=== PATIENT | female | born 1995 ===

== ENCOUNTER 2017-04-29 15:20 | Inpatient (IN) | payer MEDICAID ==
[2017-04-29 15:56] VITALS: BMI 22.9
[2017-04-29] MEDS ORDERED: Oxytocin 30 units/LR 500ML 30 U/500 ML BAG IV SCH (16:00)
[2017-04-29] MEDS ORDERED: Lactated Ringer's 1,000 ML IV SCH (16:00)
[2017-04-29 18:56] VITALS: BP 110/69; RESP 16; TEMP 97.9
[2017-04-29 19:29] LABS: BASO % 0.4 % (0.0-2.0); EOS # 0.1 K/uL (0.0-0.7); EOS % 0.9 % (0.0-4.0); LYMPH # 1.6 K/uL (1.0-4.3); LYMPH % 16.5 % (20.0-40.0); MEAN CELL VOLUME 83.7 fl (81.0-99.0); MEAN CORPUSCULAR HEMOGLOBIN 27.8 pg (27.0-31.0); MEAN CORPUSCULAR HGB CONC 33.2 g/dL (33.0-37.0); MEAN PLATELET VOLUME 9.2 fl (7.2-11.7); MONO # 0.6 K/uL (0.0-0.8); MONO % 6.4 % (0.0-10.0); NEUT # 7.4 K/uL (1.8-7.0); NEUT % 75.8 % (50.0-75.0); RBC 4.33 Mil/uL (3.80-5.20); RED CELL DISTRIBUTION WIDTH 14.7 % (11.5-14.5); WHITE BLOOD COUNT 9.8 K/uL (4.8-10.8)
[2017-04-30] MEDS ORDERED: Fentanyl/Bupivacaine HCl 250 ML EPI ONE (04:53)
[2017-04-30] MEDS ORDERED: Bupivacaine HCl 0.25% PF (10 ml) Inj ONE (04:53)
[2017-04-30] MEDS: Lactated Ringer's 1,000 ML IV SCH ×2 (08:00→16:59)
[2017-04-30] MEDS ORDERED: Lidocaine 1% Inj (20ml) ONE (13:53)
[2017-04-30] MEDS ORDERED: Oxytocin 30 units/LR 500ML 30 U/500 ML BAG IV SCH (16:34)
[2017-04-30] MEDS ORDERED: Oxycodone/Acetaminophen 5/325 mg Tab PO PRN (16:34)
[2017-04-30] MEDS ORDERED: Benzocaine/Menthol SPRAY TOP PRN (16:34)
--- NOTE | 2017-04-30 16:37 | OBDS ---
DELIVERY PERSONNEL Nurse Veterinary X Ray Operator Certified: klever Delivery Doctor: Dr Ashok Orozco Nurse: klever Enrollment Advisor: MAYRA Harris Anesthesiologist: Dr Nash Applications Consultant: klever Resident: klever MATERNAL INFORMATION Delivery Anesthesia: Epidural Medications in Delivery: pitocin 30 u in RL 500cc Estimated Blood Loss (ml): 250cc Placenta Cultured: klever RN Comments: to alive baby boy; 9/9; uuneventful Provider Comments: Delivered live baby boy at 2:54 PM the baby was bulb suctioned on the perineum an d transferred to maternal chest. The cord was clamped and cut 3 vessels noted, cord blood was obtaine d and sent to the lab. The placenta was delivered at 3:00 PM intact. Estimated blood loss was 250 mL there was a perineal laceration first degree which was repaired with 2-0 Rapide. The mother tolerated the procedure well and the baby went to the well baby nursery with Apgars of 9 and 9 weighing 2945 g LABOR SUMMARY EDC: 04/30/2017 00:00 No. Babies in Womb: 1 Attempted: No Labor Anesthesia: Epidural LABOR INFORMATION Reason for Induction Other: IUGR Onset of Labor: 04/30/2017 03:00 Complete Dilatation: 04/30/2017 14:15 Oxytocin: Induction Group B Beta Strep: Not Done Antibiotics # of Doses: 0 Antibiotics Time of Last Dose: 0 Steroids Given: None Reason Steroids Not Administered: Not Applicable MEMBRANES Membranes Rupture Method: Artificial Rupture of Membranes: 04/30/2017 11:05 Length of Rupture (hrs): 3.82 Amniotic Fluid Color: Clear Amniotic Fluid Amount: Small Amniotic Fluid Odor: Normal STAGES OF LABOR Stage 1 hrs: 11 Stage 1 min: 15 Stage 2 hrs: 0 Stage 2 min: 39 Stage 3 hrs: 0 Stage 3 min: 6 Total Time in Labor hrs: 12 Total Time in Labor min: 0 VAGINAL DELIVERY Episiotomy: None Laceration Type: Perineal Other Laceration: na Laceration Repair: Yes Initial Vag Sponge Count: 5 Final Vag Sponge Count: 5 Initial Vag Sharps Count: 5 Final Vag Sharps Count: 5 Sponge Count Correct: Yes Sharps Count Correct: 1 Count Comment: correct BABY A INFORMATION Delivery Date/Time: 04/30/2017 14:54 Method of Delivery: Vaginal Born in Route : No : N/A Forceps: N/A Vacuum Extraction: N/A Shoulder Dystocia : No SHOULDER DYSTOCIA BABY A Delivery Date/Time: 04/30/2017 14:54 PRESENTATION/POSITION BABY A Presentation: Cephalic Cephalic Presentation: Vertex Vertex Position: Left Occipital Anterior Breech Presentation: N/A PLACENTA INFORMATION BABY A Placenta Delivery Time : 04/30/2017 15:00 Placenta Method of Delivery: Expressed Placenta Status: Delivered SCORES BABY A Heart Rate 1 min: >100 bpm Resp Effort 1 min: Good Cry Reflex Irritability 1 min: Cough or Sneeze or Pulls Away Muscle Tone 1 min: Active Motion Color 1 min: Body [place], Extremities Blue SCORE 1 MIN: 9 Heart Rate 5 min: >100 bpm Resp Effort 5 min: Good Cry Reflex Irritability 5 min: Cough or Sneeze or Pulls Away Muscle Tone 5 min: Active Motion Color 5 min: Body [place], Extremities Blue SCORE 5 MIN: 9 INFANT INFORMATION BABY A Gestational Age at Delivery: 40.0 Gestational Status: Term Infant Outcome : Liveborn Infant Condition : Stable Sex: Male IDENTIFICATION/MEDS BABY A ID Band Number: [id number] ID Band Location: Left Leg; Left Arm WEIGHT/LENGTH BABY A Birthweight (gms): 2945 Infant Weight (lb): 6 Infant Weight (oz): 8 CORD INFORMATION BABY A No. Cord Vessels: 3 Nuchal Cord : Around Neck x1, Loose Nuchal Cord Other: na True Knot: na Cord pH Baby Arterial: na Infant Cord pH Baby Venous: na Cord Blood Taken: Yes Banking/Donate Info: na Suction: Mouth; Nose
[2017-05-01 06:57] LABS: HEMOGLOBIN 10.1 g/dL (12.0-16.0); MEAN CELL VOLUME 84.1 fl (81.0-99.0); MEAN CORPUSCULAR HEMOGLOBIN 27.3 pg (27.0-31.0); MEAN CORPUSCULAR HGB CONC 32.4 g/dL (33.0-37.0); RBC 3.69 Mil/uL (3.80-5.20); RED CELL DISTRIBUTION WIDTH 15.1 % (11.5-14.5)
[2017-05-01] MEDS ORDERED: Measles, Mumps, and Rubella 0.5 ML VIAL SC ONE (20:34)
--- NOTE | 2017-05-02 07:18 | OBPPN ---
Datetime: 05/02/2017 05:20 PP Pain Prov: Within normal limits PP Nausea Prov: Denies PP Flatus Prov: Yes PP BM Prov: No PP Breasts Prov: Not Done PP Heart Prov: Normal PP Lungs Prov: Normal PP Abdomen/Uterus Prov: Normal PP Lochia Prov: Normal PP Vulva/Perineum Prov: Not Done PP CVA Tenderness Prov: Not Done PP Extremities Prov: Not Done PP C/S Incision Prov: Not Applicable PP Progress Prov: Normal PP Impression Prov: Normal progression PP Plan Prov: Continue present management PP Progress Note Prov: 21 y/o now seen and examined at bedside. Patient had uneventful overnig ht. Patient reports mild pelvic pain controlled w/ pain meds. OOB/Ambulating w/o dizziness. Breast /bottle feeding w/o difficulty. Tolerating PO diet well. Lochia is less than menses in volume. Voi ding freely w/ no blood noted. Reports no bowel movement. Denies fevers, chills, n/v/d, CP/SOB, lig htheadedness and calf pain. PE: GEN: A_O, resting comfortably in bed, NAD Lung: CTA B/L, no wheezing, rhonchi, or rales CVS: S1, S2 wnl, RRR Abd: +BS, firm fundus below umbilicus. EXT: no edema, negative Kirk's, calves non-tender Assessment: 21 y/o now s/p on 04/30/2017 @ 14:54 tolerating pain w/ medication, tolerati ng oral intake, adequate urine output, doing well on PPD2. Plan: Percocet 5/325 mg 1-2 tabs PO Q6h prn for mod/severe pain. Ibuprofen 600 mg 1 tab Q6h PO pr n for mild pain. Encourage breast feeding and ambulation. Discharge today Carroll Zamora M.D. Home Energy Consultant Supervisor PGY-1 OB Hospitalist Addendum: Pt seen and examined. Agree w/ above. PPD 2 s/p , doing well, bottle feeidng, plans to try to breastfeed. Discharge home today. (ES) IP PP Procedures: None Vital Signs Provider PP: Reviewed; Within Normal Limits
--- NOTE | 2017-05-02 07:20 | OBDCSUM ---
Datetime: 05/02/2017 05:22 Discharged to, Provider: Home Follow up at, Provider: [facility] Disch Instr Activity: Normal activity Disch Instr Diet: Regular Discharge Instructions, Provider: Routine instructions given Discharge Diagnosis, Provider: Term Delivered Discharge Time: 05/02/2017 05:22 Follow up in weeks, Provider: 4-6 weeks Disch Referrals: None Contraception discussed, Prov: Yes Disch Activity Restrictions: No sexual activity; Nothing in vagina - [place], tampons, douche Discharge Comment, Provider: 21 y/o now @ 39.6 wks had uncomplicated at term w/ no risk factors Delivered baby boy on 04/30/2017 @14:54, 2954 g, : 9,9 Encourage PNV 1 tab PO once daily Ibuprofen 600 mg 1 tab PO Q6h prn for moderate pain nothing in vagina, if excessive bleeding or fever without relief from Tylenol go to ED F/U w/ [facility] in 4-6 weeks Carroll Zamora M.D. Home Demonstrator PGY-1 Contraception after Delivery: Foam/Condoms
[2017-05-02] MEDS ORDERED: Measles, Mumps, and Rubella 0.5 ML VIAL SC ONE (09:00)
--- NOTE | 2017-05-19 17:53 | OBHP ---
Datetime: 04/30/2017 05:23 Vital Signs Provider: Reviewed; Within Normal Limits Datetime: 04/29/2017 15:39 IP Adm Impression: Term, intrauterine IP Admit Plan: Observation/Evaluation Admit Comment, IP Provider: 21yo g1 edc 04/30 LMP 07/24 who presented [facility] via EMS 2ndary to VE i n office of with bloody show. Pt c/o contractios; denies decreased fm or srom PMHX _ PSHX: denies shx: denies etoh, drugs or tobacco use nkda medic: pnv I: 39.6wks Early Labor P: admit will augment if indicated. routine admit labs Pelvic Type - PN: Adequate Extremities - PN: Normal Abdomen - PN: Normal Lungs - PN: Normal Heart - PN: Normal Neurologic - PN: Normal HEENT - PN: Normal General - PN: Normal Presentation-Admit: Vertex Comments, ACOG Physical Exam: O+/ hiv _rpr nr/hepBneg/ rubell ni Gestation - Est Wks by US: 39.6 IP Chief Complaint: Uterine contractions Dilatation, Provider: 4 Effacement, Provider: 70 Station, Provider: -2 Genitourinary Exam: Normal
== END 2017-05-02 14:56 | disposition home or self-care (01) | DRG 373 ==
LOC: H.EROB2 15:20 → H.L&D 15:56 → H.OB/GYN 04-30 17:58
PROVIDERS: ADMIT Obstetrics & Gynecology; ATTEND Obstetrics & Gynecology
PROC: 10E0XZZ Delivery of Products of Conception, External Approach (ICD-10-PCS; principal; 2017-04-29)
PROC: 0HQ9XZZ Repair Perineum Skin, External Approach (ICD-10-PCS; 2017-04-29)
PROC: 4A1HXCZ Monitoring of Products of Conception, Cardiac Rate, External Approach (ICD-10-PCS; 2017-04-29)
DX: O69.81X0 Labor and delivery complicated by cord around neck, without compression, not applicable or unspecified (principal); O70.0 First degree perineal laceration during delivery; Z37.0 Single live birth; Z3A.40 40 weeks gestation of pregnancy